=== PATIENT | male | born 1990 | race Hispanic/Latino ===

== ENCOUNTER 2024-03-09 08:25 | Emergency (ER) | payer OTHER, BC ==
[2024-03-09] MEDS ORDERED: Boostrix 0.5 ML (Tdap) VIAL (>/=7 yrs of age) ONE (09:53)
== END 2024-03-09 10:16 | disposition home or self-care (01) ==
LOC: CSHERS 08:25
DX: S02.5XXA Fracture of tooth (traumatic), initial encounter for closed fracture (principal); S61.412A Laceration without foreign body of left hand, initial encounter; S01.511A Laceration without foreign body of lip, initial encounter; S01.81XA Laceration without foreign body of other part of head, initial encounter; V49.9XXA Car occupant (driver) (passenger) injured in unspecified traffic accident, initial encounter; Z23 Encounter for immunization; W22.11XA Striking against or struck by driver side automobile airbag, initial encounter; Y93.89 Activity, other specified
CPT/HCPCS: 12001; 70486; 90471; 90715

== ENCOUNTER 2024-03-15 18:57 | Emergency (ER) | payer BC | END 2024-03-15 19:16 | disposition home or self-care (01) | LOC: CSHERS 18:57 | DX: S61.412D Laceration without foreign body of left hand, subsequent encounter (principal); Z48.02 Encounter for removal of sutures; X58.XXXD Exposure to other specified factors, subsequent encounter ==